=== PATIENT | male | born 1965 | race Caucasian/White ===

== ENCOUNTER 2019-09-03 09:34 | Emergency (ER) | payer OTHER, MEDICARE ==
[~2019-09-03] VITALS: Ht 185.4 cm; Wt 108.0 kg
[2019-09-03] MEDS ORDERED: SYNTHROID25 MC1 PO (09:41)
[2019-09-03] MEDS ORDERED: ZESTRIL40 MG PO (09:41)
[2019-09-03 09:52] LABS: ABSOLUTE EOSINOPHILS 0.1 thou/uL (0.0-0.7); ABSOLUTE LYMPHOCYTES 1.3 thou/uL (0.8-5.3); ABSOLUTE MONOCYTES 0.2 thou/uL (0.0-1.2); BASOPHILS 0.7 %; EOSINOPHILS 1.8 %; HEMATOCRIT 42.6 % (42.0-52.0); HEMOGLOBIN 14.3 gm/dL (14.0-18.0); LYMPHOCYTES 19.2 %; MCH 30.5 pg (26.0-34.0); MCHC 33.6 g/dL (28.0-37.0); MCV 90.6 fL (80.0-100.0); MONOCYTES 3.6 %; MPV 7.8 fl. (7.2-11.1); NUCLEATED RBCS 0 /100WBC; PLATELET COUNT* 213 thou/uL (150-400); POLYS 74.7 %; RDW-CV 13.7 % (10.5-14.5); WBC 6.7 thou/uL (4.0-11.0)
[2019-09-03 09:59] LABS: CALCIUM 9.3 mg/dL (8.5-10.1); CREATININE 0.8 mg/dL (0.6-1.3); POTASSIUM 3.6 mmol/L (3.5-5.1)
[2019-09-03 10:09] LABS: ALBUMIN 3.9 g/dL (3.4-5.0); TOTAL BILIRUBIN 0.4 mg/dL (<0.1-1.0); TOTAL PROTEIN 6.9 g/dL (6.4-8.2)
[2019-09-03 13:36] LABS: URINE BILIRUBIN NEGATIVE (Negative); URINE BLOOD NEGATIVE (Negative); URINE CLARITY CLEAR; URINE COLOR YELLOW; URINE GLUCOSE-RANDOM NEGATIVE (Negative); URINE KETONES NEGATIVE (Negative); URINE LEUKOCYTES-REFLEX NEGATIVE (Negative); URINE NITRITE-REFLEX NEGATIVE (Negative); URINE PROTEIN NEGATIVE (Negative); URINE SPECIFIC GRAVITY 1.015 (1.005-1.030); URINE UROBILINOGEN 0.2 E.U./dl (0.2-1.0)
[2019-09-03 15:07] VITALS: BP 132/74
--- NOTE | 2019-09-03 15:12 | EKG ---
[place] [address] ELECTROCARDIOGRAM REPORT Name: RONALD CINTRON [id number] Admission: 09/03/19 Attend Phys: Discharge: 09/03/19 Date of : 61 Report #: [id number] THIS REPORT FOR: //name// [facility] ED Test Date: 2019-09-03 Test Time: 09:39:04 Pat Name: RONALD CINTRON Department: Room: Gender: M [employer]: EV : 1965 Requested By: Silvano Gomez Order Number: [id number] MD: Gianni Shearer Measurements Intervals [place] Rate: 63 P: 77 MN: 191 QRS: 39 QRSD: 103 T: 57 QT: 429 QTc: 440 Interpretive Statements Sinus rhythm Probable left atrial enlargement No previous ECG available for comparison Electronically Signed On 09-03-2019 15:12:00 CDT by Gianni Shearer [email or web address] <ELECTRONICALLY SIGNED> By: Gianni Shearer MD, [facility] 09/03/19 1512 0939 0939 Gianni Shearer MD, FACC /EPI
== END 2019-09-03 15:09 | disposition short-term general hospital (02) ==
LOC: M.ERS 09:34
PROVIDERS: Family Medicine
DX: K63.1 Perforation of intestine (nontraumatic) (principal); I10 Essential (primary) hypertension; Z87.891 Personal history of nicotine dependence